=== PATIENT | male | born 1995 | race Caucasian/White ===

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

== ENCOUNTER 2018-07-19 10:13 | Emergency (ER) | payer MEDICAID, OTHER ==
[~2018-07-19] VITALS: Ht 165.1 cm; Wt 51.7 kg
[2018-07-19 10:19] VITALS: BP 117/72
--- NOTE | 2018-07-19 10:23 | NUR ---
DR. VEGA AT BEDSIDE FOR EVAL.
[2018-07-19] MEDS ORDERED: HYDROCODONE/APAP 5/325MG 1 EACH TABLET PO ONE (10:30)
[2018-07-19] MEDS ORDERED: HYDROCODONE/APAP 5/325MG 1 EACH TABLET ONE (10:42)
--- NOTE | 2018-07-19 11:36 | NUR ---
SPLINTING AND CRUTCHES PROVIDED BY [facility].
== END 2018-07-19 11:38 | disposition home or self-care (01) ==
LOC: ER 10:18
DX: S92.812A Other fracture of left foot, initial encounter for closed fracture (principal); F17.200 Nicotine dependence, unspecified, uncomplicated; F10.10 Alcohol abuse, uncomplicated; Y90.9 Presence of alcohol in blood, level not specified; X58.XXXA Exposure to other specified factors, initial encounter; Y93.79 Activity, other specified sports and athletics; Y92.89 Other specified places as the place of occurrence of the external cause; Y99.8 Other external cause status
CPT/HCPCS: 73630-TC

== ENCOUNTER 2018-08-02 01:49 | Emergency (ER) | payer MEDICAID ==
[~2018-08-02] VITALS: Ht 165.1 cm; Wt 52.2 kg
[2018-08-02] MEDS ORDERED: IBUPROFEN 400 MG TABLET ONE (02:28)
[2018-08-02] MEDS ORDERED: IBUPROFEN 400 MG TABLET PO ONE (02:30)
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
--- NOTE | 2018-08-02 02:59 | NUR ---
PT ELOPE, NO FACIAL GRAMICE NOTED. PT WALKING. NO REPSIRATORY DISTRESS.
[2018-08-02 03:02] VITALS: BP 144/90
== END 2018-08-02 03:03 | disposition home or self-care (01) ==
LOC: ER 01:50
DX: R07.81 Pleurodynia (principal); F17.200 Nicotine dependence, unspecified, uncomplicated; Y08.89XA Assault by other specified means, initial encounter; Y93.89 Activity, other specified; Y92.89 Other specified places as the place of occurrence of the external cause; Y99.8 Other external cause status
CPT/HCPCS: 71100-TC

== ENCOUNTER 2018-10-04 07:19 | Emergency (ER) | payer MEDICAID ==
[~2018-10-04] VITALS: Ht 165.1 cm; Wt 22.7 kg
[2018-10-04 07:30] VITALS: BP 133/75
--- NOTE | 2018-10-04 08:07 | NUR ---
Patient discharged to home in stable condition. Written and verbal after care instructions given. Patient verbalizes understanding of instruction. home ambulatory stable
== END 2018-10-04 07:57 | disposition home or self-care (01) ==
LOC: ER 07:21
DX: S60.512A Abrasion of left hand, initial encounter (principal); S60.511A Abrasion of right hand, initial encounter; F17.200 Nicotine dependence, unspecified, uncomplicated; W22.8XXA Striking against or struck by other objects, initial encounter; Y93.71 Activity, boxing; Y92.89 Other specified places as the place of occurrence of the external cause; Y99.8 Other external cause status
CPT/HCPCS: 99283; A6402

== ENCOUNTER 2018-10-06 07:33 | Emergency (ER) | payer MEDICAID ==
[~2018-10-06] VITALS: Ht 167.6 cm; Wt 50.9 kg
[2018-10-06 08:28] LABS: BASOPHILS % (AUTO) 0.7 % (0.0-2.0); EOSINOPHILS % (AUTO) 2.5 % (0.0-6.0); HEMATOCRIT 44 % (39-51); HEMOGLOBIN 14.8 g/dL (13.5-17.5); LYMPHOCYTES # (AUTO) 1.9 /CMM (0.8-4.8); LYMPHOCYTES % (AUTO) 32.3 % (20.0-44.0); MEAN CORPUSCULAR HGB CONC 34 g/dl (31.0-36.0); MEAN CORPUSCULAR VOLUME 96 fL (80-96); MONOCYTES # (AUTO) 0.6 /CMM (0.1-1.30); MONOCYTES % (AUTO) 9.5 % (2.0-12.0); NEUTROPHILS # (AUTO) 3.3 /CMM (1.8-8.9); PLATELET COUNT (AUTO) 186 /CMM (150-450); RED BLOOD CELL COUNT(AUTO) 4.54 MIL/uL (4.5-6.0); WHITE BLOOD COUNT (AUTO) 5.9 K/uL (4.3-11.0)
[2018-10-06 08:32] LABS: CALCIUM, SERUM 9.1 mg/dL (8.5-10.1); CARBON DIOXIDE 30 mmol/L (21-32); CHLORIDE 101 mmol/L (98-107); CREATININE 0.8 mg/dL (0.6-1.3); GLUCOSE 94 mg/dL (74-106); POTASSIUM 3.5 mmol/L (3.5-5.1); SODIUM SERUM 139 mmol/L (136-145); UREA NITROGEN, BLOOD 14 mg/dL (7-18)
[2018-10-06 08:48] LABS: ALANINE AMINOTRANSFERASE 59 U/L (12-78); ALBUMIN 4.2 g/dL (3.4-5.0); ALCOHOL, BLOOD < 3 mg/dL (0-0); ALKALINE PHOSPHATASE 82 U/L (46-116); ASPARTATE AMINOTRANSFERASE 46 U/L (15-37); BILIRUBIN,DIRECT 0.1 mg/dL (0.0-0.2); BILIRUBIN,TOTAL 0.6 mg/dL (0.2-1.0); SALICYLATE 1.7 mg/dL (2.8-20.0); TOTAL PROTEIN, SERUM 7.6 g/dL (6.4-8.2)
--- NOTE | 2018-10-06 08:53 | NUR ---
CALLED [facility], AND SPOKE TO DR. BILLY.
--- NOTE | 2018-10-06 08:53 | NUR ---
CALLED DIETARY AND REQUESTED FOR FOOD TRAY.
[2018-10-06 08:54] LABS: THYROID STIMULATING HORMONE 1.334 uIU/mL (0.358-3.74)
--- NOTE | 2018-10-06 09:45 | NUR ---
PATIENT REFUSED TO HAVE VITALS RE-CHECKED. FOOD TRAY PROVIDED.
--- NOTE | 2018-10-06 09:56 | NUR ---
ATTEMPTED MULTIPLE TIMES TO URINATE, UNSUCCESSFUL. UNABLE TO PROVIDE UA. MD AWARE.
--- NOTE | 2018-10-06 10:00 | NUR ---
PATIENT DISCHARGED TO HOME IN STABLE CONDITION. DISCHARGE INSTRUCTIONS GIVEN TO DAD AND PATIENT AND VERBALIZED UNDERSTANDING. PATIENT REFUSED TO PROVIDE URINE SAMPLE. SECURITY ASSISTED THE PATIENT OUT OF THE BUILDING FOR SAFETY REASONS.
[2018-10-06 10:06] VITALS: BP 116/74
== END 2018-10-06 10:07 | disposition home or self-care (01) ==
LOC: ER 07:33
DX: S60.512A Abrasion of left hand, initial encounter (principal); S60.511A Abrasion of right hand, initial encounter; F28 Other psychotic disorder not due to a substance or known physiological condition; R41.82 Altered mental status, unspecified; F17.200 Nicotine dependence, unspecified, uncomplicated; Y08.89XA Assault by other specified means, initial encounter; Y93.89 Activity, other specified; Y92.89 Other specified places as the place of occurrence of the external cause; Y99.8 Other external cause status
CPT/HCPCS: 36415; 70450-TC; 80048-TC; 80076-TC; 84443-TC; 85025-TC; G0480

== ENCOUNTER 2019-01-04 21:28 | Emergency (ER) | payer MEDICAID ==
[~2019-01-04] VITALS: Ht 167.6 cm; Wt 49.9 kg
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
[2019-01-04] MEDS ORDERED: LORAZEPAM 1 MG TABLET ONE (22:30)
[2019-01-04] MEDS ORDERED: LORAZEPAM 1 MG TABLET PO ONE (22:30)
--- NOTE | 2019-01-04 22:34 | NUR ---
BLOOD DRAWN AND SENT TO LAB.
[2019-01-04 22:39] LABS: BASOPHILS % (AUTO) 0.4 % (0.0-2.0); EOSINOPHILS % (AUTO) 7.1 % (0.0-6.0); HEMATOCRIT 42 % (39-51); LYMPHOCYTES % (AUTO) 20.2 % (20.0-44.0); MEAN CORPUSCULAR HGB CONC 34 g/dl (31.0-36.0); MEAN CORPUSCULAR VOLUME 93 fL (80-96); MONOCYTES # (AUTO) 0.8 /CMM (0.1-1.30); MONOCYTES % (AUTO) 7.9 % (2.0-12.0); NEUTROPHILS # (AUTO) 6.2 /CMM (1.8-8.9); NEUTROPHILS % (AUTO) 64.4 % (43.0-81.0); PLATELET COUNT (AUTO) 193 /CMM (150-450); RED BLOOD CELL COUNT(AUTO) 4.49 MIL/uL (4.5-6.0); WHITE BLOOD COUNT (AUTO) 9.7 K/uL (4.3-11.0)
[2019-01-04 22:46] LABS: CREATININE 0.8 mg/dL (0.6-1.3); POTASSIUM 3.5 mmol/L (3.5-5.1)
[2019-01-04 22:52] LABS: ALBUMIN 3.9 g/dL (3.4-5.0); BILIRUBIN,DIRECT 0.1 mg/dL (0.0-0.2); BILIRUBIN,TOTAL 0.3 mg/dL (0.2-1.0); SALICYLATE 3.2 mg/dL (2.8-20.0); TOTAL PROTEIN, SERUM 7.2 g/dL (6.4-8.2)
--- NOTE | 2019-01-05 00:04 | NUR ---
PT SITTING UP IN BED, CURSING OUT NURSES. PT VERBALLY ABUSIVE. ATTEMPTED TO CALM PT DOWN. PT STATES "FUCK YOU AND LEAVE ME ALONE". CALL LIGHT WITHIN REACH.
--- NOTE | 2019-01-05 03:32 | NUR ---
PT ASLEEP, NO ACUTE DISTRESS NOTED, RESP EVEN AND UNLABORED. CALL LIGHT WITHIN REACH. WILL CONTINUE TO MONITOR PT CLOSELY.
[2019-01-05 04:06] LABS: APPEARANCE,URINE Clear (CLEAR); BILIRUBIN,URINE SMALL (NEGATIVE); BLOOD, URINE Negative Ery/uL (NEGATIVE); COLOR,URINE Dark (YELLOW); KETONES,URINE Negative (NEGATIVE); LEUKOCYTE ESTERASE ,URINE Negative (NEGATIVE); NITRITE, URINE Negative (NEGATIVE); PROTEIN,URINE 30 mg/dl (NEGATIVE); UGLUCOSE Negative (NEGATIVE); UROBILINOGEN,URINE 0.2 EU/dL (0.2)
[2019-01-05 04:27] LABS: BACTERIA,URINE None seen /HPF (None Seen); RBC,URINE 0-2 /HPF (0-2); SQUAMOUS EPITHELIAL CELL,UR Few /HPF (None Seen); WBC,URINE 0-2 /HPF (0-3)
--- NOTE | 2019-01-05 05:25 | NUR ---
PT RESTING IN [place]. NO SIGNS OF DISTRESS NOTED. PT NOTED TO BE FEELING ANXIOUS. DR SILVA NOTIFIED. MEDICATED ORDERED.
[2019-01-05] MEDS ORDERED: LORAZEPAM 1 MG TABLET PO ONE ×2 (05:30→09:30)
[2019-01-05] MEDS ORDERED: LORAZEPAM 1 MG TABLET ONE (09:22)
--- NOTE | 2019-01-05 09:51 | NUR ---
Art FIRE SYSTEMS INSPECTOR at bedside for eval.
[2019-01-05 12:10] VITALS: BP 119/65
--- NOTE | 2019-01-05 12:20 | NUR ---
Patient given written and verbal discharge instructions. Patient verbalizes understanding of instructions. Patient is ambulatory with steady gait. Refuses offer of fpc placement. Patient given list of available shelters in surrounding area.
--- NOTE | 2019-01-05 12:26 | NUR ---
UNABLE TO DEPART PATIENT FROM [facility]
== END 2019-01-05 12:28 | disposition home or self-care (01) ==
LOC: ER 21:28
DX: S01.01XA Laceration without foreign body of scalp, initial encounter (principal); F41.9 Anxiety disorder, unspecified; F19.10 Other psychoactive substance abuse, uncomplicated; F17.200 Nicotine dependence, unspecified, uncomplicated; X78.1XXA Intentional self-harm by knife, initial encounter; Y93.89 Activity, other specified; Y92.89 Other specified places as the place of occurrence of the external cause; Y99.8 Other external cause status
CPT/HCPCS: 36415; 80048; 80076; 80305; 80307; 80329; 81001; 85025; 99285; G0480; 81000-TC

== ENCOUNTER 2019-03-22 17:31 | Emergency (ER) | payer MEDICAID ==
[~2019-03-22] VITALS: Ht 165.1 cm; Wt 56.7 kg
[2019-03-22] MEDS ORDERED: ONDANSETRON HCL/PF 4 MG/2 ML VIAL ONE (18:27)
[2019-03-22] MEDS ORDERED: MORPHINE SULFATE INJ 4 MG/ML DISP.SYRIN ONE (18:27)
[2019-03-22] MEDS ORDERED: ACETAMINOPHEN ES 500 MG TABLET ONE (18:28)
[2019-03-22] MEDS ORDERED: IV NS 0.9% 1,000 ML BAG IV ONE (18:30)
[2019-03-22] MEDS ORDERED: MORPHINE SULFATE INJ 2 MG/ML DISP.SYRIN IV ONE (18:30)
[2019-03-22] MEDS ORDERED: ACETAMINOPHEN 325 MG TABLET PO ONE (18:30)
[2019-03-22] MEDS ORDERED: ONDANSETRON HCL/PF 4 MG/2 ML VIAL IVP ONE (18:30)
[2019-03-22 18:35] LABS: BASOPHILS # (AUTO) 0.1 /CMM (0.0-0.2); BASOPHILS % (AUTO) 0.6 % (0.0-2.0); EOSINOPHILS % (AUTO) 2.1 % (0.0-6.0); HEMATOCRIT 41 % (39-51); HEMOGLOBIN 13.5 g/dL (13.5-17.5); LYMPHOCYTES # (AUTO) 2.2 /CMM (0.8-4.8); LYMPHOCYTES % (AUTO) 22.6 % (20.0-44.0); MEAN CORPUSCULAR HGB CONC 33 g/dl (31.0-36.0); MEAN CORPUSCULAR VOLUME 92 fL (80-96); MONOCYTES # (AUTO) 0.9 /CMM (0.1-1.30); MONOCYTES % (AUTO) 9.4 % (2.0-12.0); NEUTROPHILS # (AUTO) 6.3 /CMM (1.8-8.9); NEUTROPHILS % (AUTO) 65.3 % (43.0-81.0); PLATELET COUNT (AUTO) 171 /CMM (150-450); RED BLOOD CELL COUNT(AUTO) 4.42 MIL/uL (4.5-6.0); WHITE BLOOD COUNT (AUTO) 9.6 K/uL (4.3-11.0)
[2019-03-22 18:52] LABS: CALCIUM, SERUM 9.4 mg/dL (8.5-10.1); CREATININE 0.9 mg/dL (0.6-1.3)
[2019-03-22] MEDS ORDERED: CT SWABBABLE VALVE TRANS SET 1 EA INFUS.SET MC ONE (18:56)
[2019-03-22] MEDS ORDERED: IOHEXOL-300 100 ML VIAL IV ONE (18:56)
[2019-03-22] MEDS ORDERED: IV NS 0.9% 250 ML IV ONE (18:56)
[2019-03-22 19:02] LABS: BILIRUBIN,DIRECT 0.1 mg/dL (0.0-0.2); BILIRUBIN,TOTAL 0.3 mg/dL (0.2-1.0); TOTAL PROTEIN, SERUM 7.1 g/dL (6.4-8.2)
--- NOTE | 2019-03-22 19:26 | NUR ---
PATIENT PULLED IV LINE FROM RIGHT AC.
[2019-03-22 19:45] VITALS: BP_DIAS 60
--- NOTE | 2019-03-22 19:51 | NUR ---
URINE COLLECTED AND SENT TO LAB
[2019-03-22 19:58] LABS: APPEARANCE,URINE CLEAR (CLEAR); BILIRUBIN,URINE NEGATIVE (NEGATIVE); BLOOD, URINE NEGATIVE Ery/uL (NEGATIVE); COLOR,URINE YELLOW (YELLOW); KETONES,URINE NEGATIVE (NEGATIVE); LEUKOCYTE ESTERASE ,URINE NEGATIVE (NEGATIVE); NITRITE, URINE NEGATIVE (NEGATIVE); PROTEIN,URINE NEGATIVE (NEGATIVE); UGLUCOSE NEGATIVE (NEGATIVE); UROBILINOGEN,URINE 0.2 EU/dL (0.2)
--- NOTE | 2019-03-22 20:08 | NUR ---
PATIENT SENT TO CT
--- NOTE | 2019-03-22 20:08 | NUR ---
IV 20G ESTABLISHED ON RIGHT AC.
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
--- NOTE | 2019-03-22 20:23 | NUR ---
PATIENT RETURNED FROM CT
--- NOTE | 2019-03-22 20:25 | NUR ---
PATIENT PULLED IV LINE
--- NOTE | 2019-03-22 20:27 | NUR ---
PATIENT'S FATHER AT BEDSIDE.
--- NOTE | 2019-03-22 20:33 | NUR ---
Patient was arguing with the father about the father wanting the patient to stay and wait for the results.
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
--- NOTE | 2019-03-22 20:41 | NUR ---
NURSING FURNACE REPAIR MECHANIC MADE AWARE OF PATIENT BEHAVIOR AND THE WALL DAMAGE IN THE ER WALL.
== END 2019-03-22 20:46 | disposition left against medical advice (07) ==
LOC: ER 17:32
DX: S22.32XA Fracture of one rib, left side, initial encounter for closed fracture (principal); S00.83XA Contusion of other part of head, initial encounter; S30.1XXA Contusion of abdominal wall, initial encounter; S20.211A Contusion of right front wall of thorax, initial encounter; S10.81XA Abrasion of other specified part of neck, initial encounter; S60.511A Abrasion of right hand, initial encounter; T18.2XXA Foreign body in stomach, initial encounter; F17.200 Nicotine dependence, unspecified, uncomplicated; Y04.0XXA Assault by unarmed brawl or fight, initial encounter; Y93.89 Activity, other specified; Y92.89 Other specified places as the place of occurrence of the external cause; Y99.8 Other external cause status
CPT/HCPCS: 36415; 70450; 70486; 71260; 74177; 80048; 80076; 81001; 85025; 96374; 96375; 99284; J2270; J2405; J7030; J7050; Q9967; 81000-TC

== ENCOUNTER 2019-04-09 00:32 | Emergency (ER) | payer MEDICAID ==
[~2019-04-09] VITALS: Ht 162.6 cm; Wt 55.3 kg
[2019-04-09 00:46] VITALS: BP 122/78
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
--- NOTE | 2019-04-09 00:55 | NUR ---
PT BECOMING AGGRESSIVE WITH STAFF. PT NOT COOPERATING WITH STAFF AND NOT ALLOWING STAFF TO ASSESS PATIENT. SECURITY AT BEDSIDE. PT LEFT ER
--- NOTE | 2019-04-09 01:00 | NUR ---
Patient eloped from facility. ER MD notified.
== END 2019-04-09 01:00 | disposition left against medical advice (07) ==
LOC: ER 00:33
DX: S60.512A Abrasion of left hand, initial encounter (principal); F17.200 Nicotine dependence, unspecified, uncomplicated; W26.8XXA Contact with other sharp object(s), not elsewhere classified, initial encounter; Y93.89 Activity, other specified; Y92.89 Other specified places as the place of occurrence of the external cause; Y99.8 Other external cause status

== ENCOUNTER 2019-04-09 04:08 | Emergency (ER) | payer OTHER, MEDICAID ==
[~2019-04-09] VITALS: Ht 172.7 cm; Wt 60.3 kg
[2019-04-09] MEDS ORDERED: LORAZEPAM INJ 2 MG/ML VIAL ONE (04:21)
[2019-04-09] MEDS ORDERED: LORAZEPAM INJ 2 MG/ML VIAL IM ONE (04:30)
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
--- NOTE | 2019-04-09 04:45 | NUR ---
Wound care provided, and site dressed.
--- NOTE | 2019-04-09 05:00 | NUR ---
pt released by OSMAN.
[2019-04-09] MEDS ORDERED: ACETAMINOPHEN ES 500 MG TABLET ONE (05:10)
[2019-04-09] MEDS ORDERED: ACETAMINOPHEN ES 500 MG TABLET PO ONE (05:30)
--- NOTE | 2019-04-09 05:45 | NUR ---
Pt ok to be discharged per dr Ramey . Patient discharged to home in stable condition. Written and verbal after care instructions given. Patient verbalizes understanding of instruction.Patient is awake and alert to self, day, and place. Pt ambulatory with a steady gait
[2019-04-09 07:28] VITALS: BP 124/80
== END 2019-04-09 05:45 | disposition home or self-care (01) ==
LOC: ER 04:11
DX: R45.1 Restlessness and agitation (principal); F10.10 Alcohol abuse, uncomplicated; F17.200 Nicotine dependence, unspecified, uncomplicated; Y90.9 Presence of alcohol in blood, level not specified; Z02.89 Encounter for other administrative examinations
CPT/HCPCS: 96372; 99283; J2060

== ENCOUNTER 2020-09-06 15:41 | Emergency (ER) | payer MEDICAID, OTHER ==
[~2020-09-06] VITALS: Ht 167.6 cm; Wt 61.2 kg
--- NOTE | 2020-09-06 15:55 | NUR ---
The patient bibra86, and [employer], from [facility], panic attack,"per [employer] PT is asking for lithium and they can't give it to him that's why he is here for eval". The patient is alert and oriented x3. Denies pain at this time. In room air and denies SOB. Respiration regular and unlabored. Will continue to monitor the patient.
[2020-09-06 18:21] LABS: BILIRUBIN,URINE NEGATIVE (NEGATIVE); COLOR,URINE YELLOW (YELLOW); LEUKOCYTE ESTERASE ,URINE NEGATIVE (NEGATIVE); NITRITE, URINE NEGATIVE (NEGATIVE); PROTEIN,URINE NEGATIVE (NEGATIVE); UGLUCOSE NEGATIVE (NEGATIVE); UROBILINOGEN,URINE 0.2 EU/dL (0.2)
--- NOTE | 2020-09-06 18:38 | NUR ---
The patient is alert and oriented x4. Denies any distress. Respiration regular and unlabored. Watching TV.
[2020-09-06 18:39] LABS: BACTERIA,URINE None seen /HPF (None Seen); RBC,URINE 0-2 /HPF (0-2); SQUAMOUS EPITHELIAL CELL,UR None Seen /HPF (None Seen); WBC,URINE 0-2 /HPF (0-3)
[2020-09-06 19:09] LABS: BASOPHILS # (AUTO) 0.1 /CMM (0.0-0.2); BASOPHILS % (AUTO) 0.6 % (0.0-2.0); EOSINOPHILS % (AUTO) 0.2 % (0.0-6.0); HEMATOCRIT 43 % (39-51); HEMOGLOBIN 14.7 g/dL (13.5-17.5); LYMPHOCYTES # (AUTO) 1.4 /CMM (0.8-4.8); LYMPHOCYTES % (AUTO) 16.8 % (20.0-44.0); MEAN CORPUSCULAR HGB CONC 34 g/dl (31.0-36.0); MEAN CORPUSCULAR VOLUME 93 fL (80-96); MONOCYTES # (AUTO) 0.4 /CMM (0.1-1.30); MONOCYTES % (AUTO) 4.4 % (2.0-12.0); NEUTROPHILS # (AUTO) 6.4 /CMM (1.8-8.9); PLATELET COUNT (AUTO) 256 /CMM (150-450); RED BLOOD CELL COUNT(AUTO) 4.64 MIL/uL (4.5-6.0); WHITE BLOOD COUNT (AUTO) 8.3 K/uL (4.3-11.0)
--- NOTE | 2020-09-06 19:11 | NUR ---
covid swab done and sent to the lab
[2020-09-06 19:18] LABS: CARBON DIOXIDE 24 mmol/L (21-32); CHLORIDE 103 mmol/L (98-107); CREATININE 0.7 mg/dL (0.6-1.3); GLUCOSE 91 mg/dL (74-106); POTASSIUM 3.6 mmol/L (3.5-5.1); SODIUM SERUM 136 mmol/L (136-145); UREA NITROGEN, BLOOD 11 mg/dL (7-18)
[2020-09-06 19:24] LABS: ALANINE AMINOTRANSFERASE 38 U/L (12-78); ALBUMIN 4.1 g/dL (3.4-5.0); ALCOHOL, BLOOD 5 mg/dL (0-0); ALKALINE PHOSPHATASE 107 U/L (46-116); ASPARTATE AMINOTRANSFERASE 29 U/L (15-37); BILIRUBIN,DIRECT 0.1 mg/dL (0.0-0.2); BILIRUBIN,TOTAL 0.5 mg/dL (0.2-1.0); TOTAL PROTEIN, SERUM 7.7 g/dL (6.4-8.2)
[2020-09-06 19:38] LABS: ACETAMINOPHEN < 0 ug/ml (10-30)
[2020-09-06] MEDS ORDERED: LORAZEPAM 1 MG TABLET ONE (20:15)
[2020-09-06] MEDS ORDERED: LORAZEPAM 1 MG TABLET PO ONE (20:30)
--- NOTE | 2020-09-06 22:15 | NUR ---
CALLED ANDROID IOS DEVELOPER JOSELUIS SIMEON VOICEMAIL
--- NOTE | 2020-09-06 22:44 | NUR ---
CALLED CRISIS CA[facility], LEFT VOICEMAIL
--- NOTE | 2020-09-06 23:05 | NUR ---
[facility] ETA 1 HOUR
--- NOTE | 2020-09-07 02:00 | NUR ---
[facility]IN CRISIS TEAM AT BEDSIDE
[2020-09-07] MEDS ORDERED: LITHIUM CARBONATE (300 MG CAP) 300 MG CAPSULE ONE (02:46)
[2020-09-07] MEDS ORDERED: LORAZEPAM 1 MG TABLET ONE ×2 (04:26→08:25)
[2020-09-07] MEDS ORDERED: LORAZEPAM 1 MG TABLET PO ONE ×2 (04:30→08:30)
--- NOTE | 2020-09-07 08:10 | NUR ---
THE PATIENT IS ALERT AND ORIENTED X4. DENIES PAIN BUT C/O FEELING ANXIOUSE. DR HAMIDA CRAWFORD.
--- NOTE | 2020-09-07 10:46 | NUR ---
CALLED CA[facility]IN FOR CRISIS RE EVAL. LEFT A MESSAGE.
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
--- NOTE | 2020-09-07 11:15 | NUR ---
pt provided w/ meal tray.
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
[2020-09-07] MEDS ORDERED: LORA-259 PO (13:49)
--- NOTE | 2020-09-07 14:00 | NUR ---
hugo rn in to see patient. medically and psych cleared. denies any homicidal ideation. discharge home in stable condition.
[2020-09-07 14:02] VITALS: BP 128/77
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
== END 2020-09-07 14:02 | disposition home or self-care (01) ==
LOC: ER 15:50
DX: F41.9 Anxiety disorder, unspecified (principal); F31.9 Bipolar disorder, unspecified; R03.0 Elevated blood-pressure reading, without diagnosis of hypertension; Z20.822 Contact with and (suspected) exposure to COVID-19; F17.290 Nicotine dependence, other tobacco product, uncomplicated; Z79.899 Other long term (current) drug therapy
CPT/HCPCS: 36415; 80048; 80076; 80143; 80307; 80320; 81001; 85025; 87426; 99285; 99406; C9803; G0480